=== PATIENT | female | born 1980 | race Caucasian/White ===

== ENCOUNTER → 2018-09-26 | Outpatient (CLI) | payer OTHER ==
[~2018-09-26] MED LIST: GADOBUTROL 10 ML VIAL IVP ONE
== END ==
LOC: FIMAGING 07:54
DX: R22.41 Localized swelling, mass and lump, right lower limb (principal); S93.524A Sprain of metatarsophalangeal joint of right lesser toe(s), initial encounter
CPT/HCPCS: A9585